=== PATIENT | female | born 1990 | race Two or more races ===

== ENCOUNTER → 2021-11-09 | Emergency (ER) | payer BC, OTHER ==
[~2021-11-09] VITALS: Ht 170.2 cm; Wt 117.9 kg
[~2021-11-09] MED LIST: IBUP-1957 PO
[2021-11-09 16:00] VITALS: BP 142/77
[2021-11-09 17:27] LABS: BASOPHILS % (AUTO) 0.6 % (0.0-2.0); EOSINOPHILS % (AUTO) 3.4 % (0.0-6.0); HEMATOCRIT 45 % (33-45); HEMOGLOBIN 14.8 g/dL (11.5-14.8); LYMPHOCYTES # (AUTO) 2.1 K/uL (0.8-4.8); LYMPHOCYTES % (AUTO) 41.2 % (20.0-44.0); MEAN CORPUSCULAR HGB CONC 33 g/dl (31.0-36.0); MEAN CORPUSCULAR VOLUME 86 fL (82-100); MONOCYTES # (AUTO) 0.3 K/uL (0.1-1.30); MONOCYTES % (AUTO) 5.8 % (2.0-12.0); NEUTROPHILS # (AUTO) 2.4 K/uL (1.8-8.9); PLATELET COUNT (AUTO) 298 K/uL (150-450); RED BLOOD CELL COUNT(AUTO) 5.26 MIL/uL (4.0-5.2)
[2021-11-09 18:12] LABS: ALBUMIN 4.1 g/dL (3.4-5.0); BILIRUBIN,TOTAL 0.5 mg/dL (0.2-1.0); CALCIUM, SERUM 9.3 mg/dL (8.5-10.1); CREATININE 0.6 mg/dL (0.6-1.3); TOTAL PROTEIN, SERUM 8.4 g/dL (6.4-8.2)
[2021-11-09 18:59] LABS: POTASSIUM 3.9 mmol/L (3.5-5.1)
== END | disposition home or self-care (01) ==
LOC: ER 16:16
DX: M79.662 Pain in left lower leg (principal); Z79.1 Long term (current) use of non-steroidal anti-inflammatories (NSAID)
CPT/HCPCS: 36415; 80053-TC; 85025-TC; 93970-TC

== ENCOUNTER 2023-10-26 23:57 | Emergency (ER) | payer BC, OTHER ==
[~2023-10-26] VITALS: Ht 167.6 cm; Wt 117.9 kg
[2023-10-27 01:27] VITALS: TEMP 98.1
[2023-10-27] MEDS ORDERED: HYDROCODONE/APAP 5/325MG TABLET ONE (01:38)
[2023-10-27] MEDS: HYDROCODONE/APAP 5/325MG TABLET PO ONE (01:40)
[2023-10-27] MEDS ORDERED: IBUP-1957 PO (02:55)
[2023-10-27 03:21] VITALS: BP 130/69; O2SAT 100
== END 2023-10-27 03:27 | disposition home or self-care (01) ==
LOC: ER 10-27 00:07
DX: S93.401A Sprain of unspecified ligament of right ankle, initial encounter (principal); X50.1XXA Overexertion from prolonged static or awkward postures, initial encounter; Y93.89 Activity, other specified; Y92.89 Other specified places as the place of occurrence of the external cause; Y99.8 Other external cause status
CPT/HCPCS: 73610-TC; 73700-TC